=== PATIENT | female | born 1965 | race Caucasian/White ===

== ENCOUNTER 2018-04-18 03:35 | Emergency (ER) | payer SELFPAY ==
[~2018-04-18] VITALS: Ht 160 cm; Wt 76.2 kg
[2018-04-18 03:45] VITALS: BP 127/67
[2018-04-18 05:11] LABS: Urine Bacteria MANY /hpf (None Seen); Urine Blood Negative /uL (Negative); Urine Mucus FEW (None Seen); Urine WBC 393 /hpf (0 - 5)
[2018-04-18] MEDS ORDERED: KETOROLAC TROMETH 60MG/2ML VIAL IM ONE (07:15)
[2018-04-18] MEDS ORDERED: cefTRIAXone SOD 1,000 MG VL IM ONE (07:15)
== END 2018-04-18 07:44 | disposition home or self-care (01) ==
LOC: ER 03:35
DX: N39.0 Urinary tract infection, site not specified (principal); M62.838 Other muscle spasm; G89.29 Other chronic pain
CPT/HCPCS: 72100; 81001; 96372; 99285; J0696; J1885; 93005

== ENCOUNTER 2022-10-14 17:48 | Emergency (ER) | payer BC, MEDICAID ==
[~2022-10-14] VITALS: Ht 160 cm; Wt 68.0 kg
[~2022-10-14 17:48] MED LIST: BUTAPT GT
[2022-10-14 19:45] LABS: Urine Bacteria FEW /hpf (None Seen); Urine Blood Negative /uL (Negative); Urine WBC 8 /hpf (0 - 5)
[2022-10-14] MEDS ORDERED: SULF800T7 PO (20:06)
[2022-10-14] MEDS ORDERED: cefTRIAXone SOD 1,000 MG VL IM ONE (20:15)
[2022-10-14 20:35] VITALS: BP 145/77
== END 2022-10-15 03:16 | disposition home or self-care (01) ==
LOC: ER 17:48
DX: N39.0 Urinary tract infection, site not specified (principal); G43.909 Migraine, unspecified, not intractable, without status migrainosus; Z98.51 Tubal ligation status
CPT/HCPCS: 81001; 96372; 99283; J0696

== ENCOUNTER → 2023-01-08 | Outpatient (CLI) | payer MEDICAID ==
[~2023-01-08] MED LIST changes: +SULF800T23 PO
== END | disposition home or self-care (01) ==
LOC: Rad HDHVI 13:00
PROVIDERS: ATTEND Internal Medicine Cardiovascular Disease
DX: I07.1 Rheumatic tricuspid insufficiency (principal); I10 Essential (primary) hypertension
CPT/HCPCS: 93306